=== PATIENT | female | born 1940 | race Caucasian/White ===

== ENCOUNTER → 2017-04-17 | Outpatient (CLI) | payer MEDICARE, OTHER | LOC: GMAL 14:19 | PROVIDERS: ATTEND Family Medicine | DX: D51.3 Other dietary vitamin B12 deficiency anemia (principal); R53.83 Other fatigue; E55.9 Vitamin D deficiency, unspecified; I10 Essential (primary) hypertension; E78.4 Other hyperlipidemia ==

== ENCOUNTER → 2017-06-28 | Outpatient (CLI) | payer MEDICARE, OTHER | END | disposition home or self-care (01) | LOC: GMA 14:04 | PROVIDERS: ATTEND Physician Assistant | DX: N39.0 Urinary tract infection, site not specified (principal) ==

== ENCOUNTER → 2017-08-01 | Outpatient (CLI) | payer MEDICARE, OTHER | LOC: GMAL 14:29 | PROVIDERS: ATTEND Family Medicine | DX: E55.9 Vitamin D deficiency, unspecified (principal) ==

== ENCOUNTER → 2017-08-09 | Outpatient (CLI) | payer MEDICARE, OTHER ==
--- NOTE | 2017-08-10 16:57 | MAM ---
EXAM DESCRIPTION: 3D Screening BILATERAL : Digital Mammography. CLINICAL HISTORY: 77 years Female SCREENING . No complaints. "Fibrocystic disease". Sister with breast cancer. Postmenopausal. Has taken HRT 5 or more years ago. Prior benign left biopsy. COMPARISON: 2-D digital screening bilateral studies 07/26/2016 and 06/20/2015 Report from prior examination also reviewed. TECHNIQUE: Bilateral CC and MLO projection full-field images, 3-D tomosynthesis digital mammographic technique. Also bilateral synthesized CC/ MLO full-field images. CAD not utilized. FINDINGS: The breast parenchymal density pattern is: Extremely dense breast tissue, which lowers the sensitivity of mammography. No skin thickening or nipple retraction bilateral solitary microcalcifications. Bilateral vascular calcifications. No focal, stellate mass or density, focal asymmetry , and no suspicious microcalcifications bilaterally. Stable mammograms compared to prior studies, taking into account differences in mammographic technique IMPRESSION: BI-RADS CATEGORY: 2 - BENIGN FINDINGS. FOLLOW UP: Routine digital bilateral screening, one year interval from August 2017. Written communication explaining the IMPRESSION and follow-up, will be mailed to the patient and referring health care provider. According to the [employer], yearly mammograms are recommended starting at age 40 and continuing as long as a woman is in good health. Any breast change noted on a breast self-exam should be reported promptly to the patient's healthcare provider. Breast MRI is recommended for women with an approximately 20-25% or greater lifetime risk of breast cancer, including women with a strong family history of breast or ovarian cancer and women who have been treated for Hodgkin's disease. A negative mammographic report should not delay tissue diagnosis in patients with significant clinical history or physical findings. Extremely dense breast tissue limits the sensitivity of digital mammography. Electronically signed by: Jonas Serra MD 08/10/2017 4:56 PM LAWN TECHNICIAN
== END | disposition home or self-care (01) ==
LOC: MAMMO 12:55
PROVIDERS: ATTEND Family Medicine
DX: Z12.31 Encounter for screening mammogram for malignant neoplasm of breast (principal)
CPT/HCPCS: 77063; G0202

== ENCOUNTER → 2017-12-06 | Outpatient (CLI) | payer MEDICARE ==
--- NOTE | 2017-12-06 19:24 | MRI ---
EXAM DESCRIPTION: Brain w/o Contrast: MRI. CLINICAL HISTORY: CVA COMPARISON: MRI scan of the brain without contrast 09/03/2015. TECHNIQUE: Multiplanar, high-field MRI unit, multiple diffusion sequences, multiple conventional sequences without contrast. FINDINGS: Small foci of bright FLAIR and T2-weighted signal in the periventricular white matter and briones-white matter junctions of the right frontal lobe. Not associated with hemorrhage mass effect or diffusion restriction.. . Question of a small focal lesion in the posterior limb of the left internal capsule. No other lesions in the basal ganglia. No hemorrhage, no cerebral edema, no mass-effect. Normal signal in the brainstem and cerebellar hemispheres. No hemorrhage, no cerebral edema, no mass-effect. Concordance of the diffusion and non-diffusion sequences with no diffusion restriction. Cortical sulci, ventricles, and other CSF spaces, and the subdural spaces are normally configured for patients age. No effacement or displacement. No midline shift. No extra-axial hemorrhage. Normal flow signal void in the major vessels of the [place], and the venous sinuses. IACs are symmetric bilaterally. Normal signal in the bilateral mastoid air cells. No mass effect in the bilateral cerebellopontine angles. Pituitary gland occupies most of the sella. Base of the cerebellar tonsils is above the foramen magnum. Normal signal in the included paranasal sinuses. Dental hardware in the left maxilla creating artifact over the left anterior facial structures. The bony calvarium is intact. IMPRESSION: 1. 2 foci of abnormal signal in the right frontal lobe periventricular white matter and subcortical white matter are stable since the prior study in 2014. No diffusion restriction mass effect or cerebral edema or hemorrhage. Most likely related to previous ischemic process or small vessel disease. 2. The remainder of the brain shows no remarkable findings with no diffusion restriction on noncontrast MRI diffusion study. Stable since the prior study in 2014. Electronically signed by: Jonas Serra MD 12/06/2017 7:23 PM DEBURRING MACHINE OPERATOR
== END ==
LOC: MRI 13:56
PROVIDERS: ATTEND Family Medicine
DX: I63.50 Cerebral infarction due to unspecified occlusion or stenosis of unspecified cerebral artery (principal)

== ENCOUNTER → 2017-12-27 | Outpatient (CLI) | payer MEDICARE ==
--- NOTE | 2017-12-30 08:17 | MRI ---
EXAM DESCRIPTION: Knee,Right CLINICAL HISTORY: KNEE PAIN COMPARISON: None Available. TECHNIQUE: MRI of the right knee is performed according to our usual protocol with multiplanar multi sequence imaging. FINDINGS: Small right knee joint effusion. There is an 8 mm loose body in the anterior central aspect of the knee joint related to arthritic changes. Evaluation of articular surfaces of the knee joint shows severe patellofemoral arthritis with extensive grade 4 chondrosis. The trochlea is similarly affected and is very flat in shape. 10 mm of lateral subluxation of the patella is present. TT TG interval at 16 mm. These findings are consistent with lateral tracking of the patella. Extensive grade 3 chondrosis in the medial compartment of the knee joint. Reactive edema and subchondral cystic changes on both sides of the proximal tibiofibular joint consistent with degenerative changes and location as well. Cruciate and collateral ligaments intact. Extensive degenerative maceration of the medial meniscus posterior horn at the posteromedial corner but without full-thickness tear. Lateral meniscus intact. IMPRESSION: 1. Advanced arthritic changes especially patellofemoral 2. Loose body in the anterior aspect of the joint related to the patellofemoral arthritis almost certainly 3. Degenerative maceration medial meniscus Electronically signed by: Cipriano Garza MD 12/30/2017 8:15 AM CDT
== END ==
LOC: MRI 13:00
PROVIDERS: ATTEND Family Medicine
DX: M13.861 Other specified arthritis, right knee (principal); M25.561 Pain in right knee

== ENCOUNTER → 2018-01-11 | Outpatient (CLI) | payer MEDICARE | LOC: GMAL 11:12 | PROVIDERS: ATTEND Family Medicine | DX: R30.0 Dysuria (principal) ==

== ENCOUNTER → 2018-01-14 | Outpatient (CLI) | payer MEDICARE | LOC: LAB.O 12:47 | PROVIDERS: ATTEND Orthopaedic Surgery | DX: Z01.818 Encounter for other preprocedural examination (principal) ==

== ENCOUNTER → 2018-02-12 | Outpatient (CLI) | payer MEDICARE | LOC: LAB.O 11:14 | PROVIDERS: ATTEND Internal Medicine Hematology & Oncology | DX: D66 Hereditary factor VIII deficiency (principal) ==

== ENCOUNTER → 2018-02-28 | Outpatient (CLI) | payer MEDICARE | LOC: LAB.O 12:49 | PROVIDERS: ATTEND Family Medicine | DX: D68.0 Von Willebrand disease (principal) ==

== ENCOUNTER → 2018-03-15 | Outpatient (CLI) | payer MEDICARE ==
--- NOTE | 2018-03-15 11:27 | CT ---
EXAM DESCRIPTION: Abdoment/Pelvis w/o Contrast CLINICAL HISTORY: 77 years, Female, ABDOMINAL PAIN COMPARISON: None. TECHNIQUE: CT of the abdomen and pelvis is performed according to our non contrast protocol. Oral contrast was administered. FINDINGS: The lung bases are clear. Dense glandular breast tissue seen bilaterally. Correlate with mammographic findings. Heart size is normal. No pericardial effusion. Low density lesions in the inferior right lobe of the liver are consistent with cysts, all three of similar size approximately 1.5 cm. 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 No inflammation around the pancreas. Liver, spleen, and pancreas are otherwise unremarkable. Cyst in the upper lateral right kidney measures 3.4 cm with density of 10 Hounsfield units. The right kidney is otherwise unremarkable. The left kidney is unremarkable. No renal calculi or hydronephrosis. Normal adrenal glands. No stones in the gallbladder. Small bowel loops appear normal in caliber with normal wall thickness. There is no lymphadenopathy, inflammation, or free fluid observed. In the pelvis, the appendix is not seen. No inflammation around the cecum or terminal ileum or sigmoid colon. There is extensive sigmoid diverticulosis. No stones in the distal ureters or bladder. Rectal wall thickness is normal for degree of distention. No free fluid or mass in the pelvis. Uterus and ovaries are not seen, evidently surgically absent. No inguinal or lower pelvic adenopathy. Facet degenerative changes are prominent in the lower L-spine. Coronal and sagittal reformatted images confirm the findings. IMPRESSION: No acute upper abdominal process. No acute pelvic process. This exam was performed according to our departmental dose-optimization program, which includes automated exposure control, adjustment of the mA and/or kV according to patient size and/or use of iterative reconstruction technique. Total DLP equals 675.76 mGycm. Electronically signed by: Iain Gaviria MD 03/15/2018 11:25 AM CDT
== END ==
LOC: CT 08:39
PROVIDERS: ATTEND Family Medicine
DX: R10.84 Generalized abdominal pain (principal)

== ENCOUNTER 2018-03-26 05:29 | Inpatient (IN) | payer MEDICARE ==
--- NOTE | 2018-03-25 10:04 | HP ---
CHIEF COMPLAINT: Knee pain. HISTORY OF PRESENT ILLNESS: Ms. Aguirre is a 77-year-old female with a history of pain in the right knee. Her knee pain has been present for years and getting worse. She has had no injury associated with this, no neurologic symptoms and denies radiation of pain. She denies any mechanical symptoms. She has had injections and at this point has requested operative intervention. After discussing the risks, benefits and alternatives to that, the patient has given informed consent for total knee arthroplasty. PAST SURGICAL HISTORY: 1. Appendectomy. 2. Tubal ligation. 3. Discectomy. 4. Hysterectomy. 5. Lumpectomy. 6. Lipoma removal. MEDICATIONS: 1. Allopurinol. 2. Aspirin. 3. Docusate. 4. Famotidine. 5. Hydrochlorothiazide. 6. Lisinopril. 7. Benadryl. 8. Topiramate. 9. Simvastatin. 10. Potassium. 11. Hydrocodone. ALLERGIES: KEFLEX, FLEXERIL, CELEBREX, NAMENDA, AMOXIL, MICARDIS, BENICAR, DOXEPIN, NORVASC. CODE STATUS: Full code. IMMUNIZATIONS: Up to date. FAMILY HISTORY: None pertinent to today's complaint. SOCIAL HISTORY: The patient does not drink, smoke or use any illicit drugs. REVIEW OF SYSTEMS: Negative except as indicated in the History of Present Illness. PHYSICAL EXAMINATION: VITAL SIGNS: Blood pressure 133/80. Pulse 68. Height 5'. Weight 155 pounds. MENTAL STATUS: The patient is awake, alert, and is able to give a good history and participate in the physical. The patient is oriented to person, place and time. SKIN: Normal tone and turgor. HEENT: Normocephalic, atraumatic. Pupils equal, round and reactive. Mucosal membranes are moist. NECK: Normal range of motion. No thyromegaly, no lymphadenopathy. CHEST: Normal respiratory excursion. CARDIAC: Regular rate and rhythm. No murmurs, rubs or gallops. MUSCULOSKELETAL: Bilateral upper extremities show full active range of motion without pain. She has intact sensation. They are warm and well perfused. There is no deformity or crepitus. Strength is 5/5. The left lower extremity shows no significant pain with range of motion of the hip. Sensation is intact. The extremity is warm and well perfused. There is no deformity. She has pain with range of motion of the knee and crepitus, but no varus/valgus or anterior/posterior laxity. The right lower extremity shows no pain with range of motion of the hip. She has pain and crepitus with range of motion of the knee. She has warm and well perfused extremity. Sensation is intact. There is no varus/valgus or anterior/posterior laxity. She is very tender to palpation diffusely about the knee and most prominent along the medial aspect and she has pain with patella mobilization as well as pain along the lateral joint-line. ASSESSMENT: 1. Knee osteoarthritis. PLAN: The plan at this point is for total knee arthroplasty. We have discussed the risks, benefits, and alternatives to that and the patient has given informed consent. #[id number] [facility]
[2018-03-26] MEDS ORDERED: LACTATED RINGERS 1,000 ML ONE ×2 (05:56→09:44)
[2018-03-26] MEDS ORDERED: SODIUM CHL 0.9% 100ML MINI-BAG 100 ML IVPB ONE (05:56)
[2018-03-26] MEDS ORDERED: ceFAZolin SODIUM 1 GM VIAL ONE ×2 (05:57→10:21)
[2018-03-26] MEDS ORDERED: VANCOMYCIN HCL INJ 1,000 MG VIAL IVPB ONE ×3 (05:57→20:27)
[2018-03-26] MEDS ORDERED: SODIUM CHLORIDE 0.9% 250ML 250 ML ONE ×2 (05:58→20:27)
[2018-03-26] MEDS ORDERED: SODIUM CHLORIDE 0.9% 500ML 500 ML ONE ×2 (05:58→13:57)
[2018-03-26] MEDS ORDERED: TRANEXAMIC ACID 1,000 MG/10 ML VIAL ONE ×2 (06:01→06:02)
[2018-03-26] MEDS ORDERED: SODIUM CHLORIDE 0.9% 100ML 100 ML IVPB ONE (06:02)
[2018-03-26] MEDS ORDERED: PROMETHAZINE HCL INJ 12.5 MG in SODIUM CHLORIDE 0.9% 50ML 50 ML IVPB PRN (07:17)
[2018-03-26] MEDS ORDERED: TRANEXAMIC ACID INJ 1,000 MG in SODIUM CHLORIDE 0.9% 100ML 100 ML IVPB ONE (07:17)
[2018-03-26] MEDS ORDERED: ZOLPIDEM TARTRATE 5 MG TAB PO PRN (07:17)
[2018-03-26] MEDS ORDERED: MORPHINE SULFATE INJ 10 MG/ML VIAL IM PRN (07:17)
[2018-03-26] MEDS ORDERED: CYCLOBENZAPRINE HCL 10 MG TAB PO PRN (07:17)
[2018-03-26] MEDS ORDERED: NALOXONE HCL INJ 0.4 MG/ML VIAL IV PRN (07:17)
[2018-03-26] MEDS ORDERED: DEX 5% W/NACL 0.45% 1000ML 1,000 ML IVS PRN (07:17)
[2018-03-26] MEDS ORDERED: BISACODYL SUPPOSITORY 10 MG PR PRN (07:17)
[2018-03-26] MEDS ORDERED: TEMAZEPAM 15 MG CAP PO PRN (07:17)
[2018-03-26] MEDS ORDERED: ALUMINUM & MAGNESIUM HYDROXIDE 30 ML UD PO PRN (07:17)
[2018-03-26] MEDS ORDERED: MORPHINE SULFATE INJ 10 MG/ML VIAL IV PRN (07:17)
[2018-03-26] MEDS ORDERED: traMADol HCL 50 MG TAB PO PRN (07:17)
[2018-03-26] MEDS ORDERED: BENZOCAINE-MENTH LOZ (CEPACOL) 1 EA LOZ MT PRN (07:17)
[2018-03-26] MEDS ORDERED: ACETAMINOPHEN 500 MG TAB PO PRN (07:17)
[2018-03-26] MEDS ORDERED: MAGNESIUM HYDROXIDE 30 ML UD PO PRN (07:17)
[2018-03-26] MEDS ORDERED: PROMETHAZINE HCL INJ 25 MG in SODIUM CHLORIDE 0.9% 50ML 50 ML IVPB PRN (07:17)
[2018-03-26] MEDS ORDERED: MORPHINE PCA 1 MG/ML 100 ML BAG IVPB SCH (07:30)
[2018-03-26] MEDS ORDERED: MORPHINE SULF *EPIDURAL* 1 MG/ML VIAL ONE (09:43)
[2018-03-26] MEDS ORDERED: fentaNYL CITRATE INJ 50 MCG/ML AMP ONE (09:43)
[2018-03-26] MEDS ORDERED: MIDAZOLAM INJ 5 MG/5 ML VIAL ONE (09:44)
[2018-03-26] MEDS ORDERED: METOCLOPRAMIDE HCL INJ 10 MG/2 ML VIAL IV ONE (10:00)
[2018-03-26] MEDS ORDERED: ONDANSETRON INJ 4 MG/2 ML VIAL IV ONE (10:00)
[2018-03-26] MEDS ORDERED: DEXAMETHASONE INJ 10 MG/ML VIAL IV ONE (10:00)
[2018-03-26] MEDS ORDERED: PROPOFOL 200 MG/20 ML VIAL IV ONE (10:00)
[2018-03-26] MEDS ORDERED: BUPIVACAINE 0.25% W/EPI 50 ML VIAL INJ ONE (10:21)
[2018-03-26] MEDS: MAGNESIUM OXIDE 400 MG TAB PO SCH (14:42)
[2018-03-26] MEDS: IV SET AND CAP CHANGE INJ INJ SCH (14:42)
[2018-03-26] MEDS: ONDANSETRON INJ 4 MG/2 ML VIAL IV PRN ×2 (16:23→21:00)
[2018-03-26] MEDS: SODIUM CHLORIDE 0.9% (FLUSH) 10 ML SYG IV PRN (16:23)
--- NOTE | 2018-03-26 16:51 | RAD ---
EXAM DESCRIPTION: Knee,Right 2 or More Views CLINICAL HISTORY: 77 years, Female, TKA COMPARISON: None TECHNIQUE: Two views of the right knee FINDINGS: Total right knee arthroplasty is noted with air in the anterior soft tissues consistent with postoperative film. Superior spurring of the patella is seen. Normal alignment of femoral and tibial components of the total prosthesis. Patella is normally situated. No complicating fracture. IMPRESSION: Total right knee arthroplasty. Electronically signed by: Iain Gaviria MD 03/26/2018 4:50 PM CDT
[2018-03-26] MEDS ORDERED: levoFLOXacin 500MG IV 100 ML IVPB ONE (20:25)
[2018-03-26] MEDS: FAMOTIDINE 20 MG TAB PO SCH (20:43)
[2018-03-26] MEDS: POTASSIUM CHLORIDE 10 MEQ TAB PO SCH (20:44)
[2018-03-26] MEDS ORDERED: DOCUSATE CALCIUM 240 MG CAP PO SCH (21:00)
[2018-03-26] MEDS ORDERED: levoFLOXacin 500MG IV 500 MG in PREMIX BAG 1 BAG IVPB ONE (21:00)
--- NOTE | 2018-03-26 21:04 | CONS ---
DATE OF CONSULTATION: 03/26/18 SUPERVISING PHYSICIAN: Butch Rosales M.D. CHIEF COMPLAINT: Right knee pain. HISTORY OF PRESENT ILLNESS: This is a 77 year-old female patient who has had a history of right knee pain. It has been ongoing for several years. She has tried conservative measures but it continues to get worse. There was no injury associated with the knee pain. At this point, she has requested operative intervention per Dr. Kel Hartley, orthopedic surgeon for a right total knee arthroplasty. I am seeing the patient postoperatively. PAST MEDICAL HISTORY: 1. Gout. 2. Gastroesophageal reflux disease. 3. Fibromyalgia. 4. Hyperlipidemia. 5. Hypertension. 6. Coagulopathy problem that may be Von Willebrand but the family was unsure. PAST SURGICAL HISTORY: 1. Appendectomy. 2. Tubal ligation. 3. Discectomy. 4. Hysterectomy. 5. Lumpectomy. 6. Lipoma removal. CURRENT MEDICATIONS: 1. Allopurinol. 2. Aspirin. 3. Docusate sodium. 4. Pepcid. 5. Hydrochlorothiazide. 6. Lisinopril. 7. Medrol. 8. Topiramate. 9. Simvastatin. 10. Potassium. 11. Hydrocodone. ALLERGIES: KEFLEX, FLEXERIL, CELEBREX, NAMENDA, AMOXIL, MICARDIS, BENICAR, DOXEPIN AND NORVASC. FAMILY HISTORY: Noncontributory. SOCIAL HISTORY: She lives in [place]. She has no history of tobacco, ETOH or illicit drug use. REVIEW OF SYSTEMS: Negative except as per History of Present Illness. PHYSICAL EXAMINATION: VITAL SIGNS: She is afebrile, heart rate 77, blood pressure 115/74, respiratory rate 16, O2 sat 92% on 2 liters nasal cannula. GENERAL: This is a 77 year-old female patient who is lying in her hospital bed. She is sleepy but awakens easily. HEENT: Normocephalic and atraumatic. Pupils are equal and reactive. Oropharynx is clear. NECK: Supple without mass. RESPIRATORY: Essentially clear to auscultation bilaterally. CHEST: There is equal rise and fall of the chest with inspiration and expiration. HEART: Regular rate and rhythm. GASTROINTESTINAL: Abdomen is soft, nondistended, non-tender. Bowel sounds are positive. EXTREMITIES: She has an Darvin bandage and Iceman in place to the right knee. Her bilateral pedal pulses are palpable at +2. NEUROLOGIC: She is lethargic but awakens easily. She is oriented times three. IMPRESSION: 1. Right knee osteoarthritis status post right total knee arthroplasty per Dr. Kel Hartley, orthopedic surgeon, postoperative day zero. 2. Gastroesophageal reflux disease. 3. Gout. 4. Hyperlipidemia. 5. Hypertension. 6. Coagulopathy. PLAN: We will continue present supportive care. Dr. Hartley has ordered Cryoprecipitate to be given over the next 3 days. I have restarted her home medications. All orthopedic issues will be per Dr. Kel aHrtley, orthopedic surgeon. Physical therapy will start tomorrow for strengthening and conditioning. We will continue to monitor her closely and follow as needed. Dr. Rosales is the collaborating physician available for consultation. #[id number] [facility]
[2018-03-26] MEDS: VANCOMYCIN HCL INJ 1,000 MG in SODIUM CHLORIDE 0.9% 250ML 250 ML IVPB SCH (21:50)
[2018-03-26] MEDS ORDERED: SODIUM CHLORIDE 0.9% 50ML 50 ML ONE (22:39)
[2018-03-26] MEDS ORDERED: PROMETHAZINE HCL INJ 25 MG/ML VIAL ONE (22:39)
[2018-03-27] MEDS: diphenhydrAMINE HCL 50 MG/ML VIAL IV PRN ×3 (06:19→20:26)
[2018-03-27] MEDS: SODIUM CHLORIDE 0.9% (FLUSH) 10 ML SYG IV PRN (06:20)
[2018-03-27] MEDS ORDERED: NEBIVOLOL 2.5 MG TAB ONE (07:57)
[2018-03-27] MEDS ORDERED: DOCUSATE SODIUM 100 MG CAP ONE (07:58)
--- NOTE | 2018-03-27 08:01 | OP ---
DATE OF PROCEDURE: 03/26/18 PREOPERATIVE DIAGNOSIS: 1. Right knee osteoarthritis. POSTOPERATIVE DIAGNOSIS: 1. Right knee osteoarthritis. PROCEDURE: 1. Right total knee arthroplasty. SURGEON: Kel Hartley MD. TEMPER MILL OPERATOR: Jonas Alberto CST, SA-C. ANESTHESIA: General. COMPLICATIONS: None. FINDINGS: Severe osteoarthritis. INDICATION: Ms. Aguirre has a history of osteoarthritis of the knee which has been refractory to conservative measures. Because of the refractory nature of her arthritis and the failure of conservative measures, she has requested operative intervention. After discussing the risks, benefits and alternatives to that, the patient has given informed consent for total knee arthroplasty. PROCEDURE: The patient was brought to the Operating Room and placed in supine position. General anesthesia was induced and the patient's leg was sterilely prepped and draped. Following prepping and draping, the distal femur was exposed and using an intramedullary guide, the distal femoral cut was made. The appropriate sized cutting block was measured, pinned into place, and the anterior, posterior, and chamfer cuts were made. The ACL was transected and the tibia was subluxed. Both the medial and lateral menisci were removed. An intramedullary guide was used to make the proximal tibial cut. The appropriate sized base plate was placed and a trial polyethylene was placed. The trial femur was placed, the knee was reduced, and the knee was taken through a range of motion. The knee was stable in anterior, posterior, varus and valgus stress. The patella tracked anatomically without evidence of subluxation or dislocation. After trialing, the trial components were removed and the bony surfaces were thoroughly irrigated with saline. Following irrigation, the surfaces were dried and the final components were cemented into place. The excess cement was removed and the remaining cement was allowed to cure. The knee was again taken through a range of motion to confirm stability. The wound was then irrigated with saline and closure was performed using PDS to approximate the arthrotomy followed by closure of the subcutaneous tissues with a combination of running and interrupted Monocryl sutures. Sterile dressing was placed. The patient was awoken from anesthesia and taken to Recovery. POSTOPERATIVE INSTRUCTIONS: The patient will be weight-bearing as tolerated on postoperative day 1. COMPONENTS: [employer] knee, size 4 femur, size 3 tibia, 11 mm insert. #[id number] [facility]
--- NOTE | 2018-03-27 08:13 | PN ---
DATE: 03/26/18 POSTOPERATIVE CHECK SUBJECTIVE: Ms. Aguirre is doing well and she is not having any pain. OBJECTIVE: Afebrile. Vital signs stable. Dressing is clean, dry and intact. ASSESSMENT: Status post total knee arthroplasty. PLAN: The plan at this point is for her to begin weight-bearing as tolerated on postoperative day 1. #[id number] [facility]
--- NOTE | 2018-03-27 08:16 | PN ---
DATE: 03/27/18 SUBJECTIVE: Ms. Aguirre is doing pretty well and pain is well controlled with her COOK HELPER MEAT. OBJECTIVE: Afebrile. Vital signs stable. Dressing is clean, dry and intact. ASSESSMENT: Status post total knee arthroplasty. PLAN: The plan at this point is to begin weight-bearing as tolerated today. We will also begin CPM. [facility][id number] [facility]
[2018-03-27] MEDS ORDERED: DOCUSATE SODIUM 100 MG CAP PO SCH (09:00)
[2018-03-27] MEDS: LISINOPRIL 10 MG TAB PO SCH (09:31)
[2018-03-27] MEDS: MAGNESIUM OXIDE 400 MG TAB PO SCH (09:31)
[2018-03-27] MEDS: hydroCHLOROthiazide 25 MG TAB PO SCH (09:32)
[2018-03-27] MEDS: SIMVASTATIN 20 MG TAB PO SCH (09:32)
[2018-03-27] MEDS: POTASSIUM CHLORIDE 10 MEQ TAB PO SCH ×2 (09:32→18:23)
[2018-03-27] MEDS: TOPIRAMATE 25 MG TAB PO SCH (09:32)
[2018-03-27] MEDS: ALLOPURINOL 300 MG TAB PO SCH (09:32)
[2018-03-27] MEDS: FAMOTIDINE 20 MG TAB PO SCH ×2 (09:32→20:26)
[2018-03-27] MEDS: NEBIVOLOL 2.5 MG TAB PO SCH (09:32)
[2018-03-27] MEDS ORDERED: VANCOMYCIN HCL INJ 1,000 MG VIAL IVPB ONE (10:23)
[2018-03-27] MEDS ORDERED: SODIUM CHLORIDE 0.9% 250ML 250 ML ONE (10:23)
[2018-03-27] MEDS: VANCOMYCIN HCL INJ 1,000 MG in SODIUM CHLORIDE 0.9% 250ML 250 ML IVPB SCH (10:26)
[2018-03-27] MEDS: HYDROcodone 5MG/APAP 325MG 1 EA TAB PO PRN ×3 (10:31→20:25)
[2018-03-27] MEDS: ONDANSETRON INJ 4 MG/2 ML VIAL IV PRN ×2 (10:37→15:15)
[2018-03-27] MEDS: ENOXAPARIN SODIUM 30 MG/0.3 ML SYG SUBCU SCH (12:41)
--- NOTE | 2018-03-27 13:50 | PN ---
SUPERVISING PHYSICIAN: Butch Rosales MD DATE: 03/27/18 SUBJECTIVE: The patient is lying in bed. She continues to have complaints of some nausea although she has had no antinausea medicine since last night. She also has quite a bit of itching. We discussed that we would discontinue her VASCULAR TECHNICIAN and she does pretty well on hydrocodone, but she will need a stool softener. Otherwise, there is no chest pain or shortness of breath. She does feel her pain is being well controlled at this point. She is still on clear liquids. We will advance those as she tolerates. OBJECTIVE: VITAL SIGNS: Afebrile. Heart rate 86. Blood pressure 139/78. Respiratory rate 18. O2 saturation 93% on room air. RESPIRATORY: Essentially clear to auscultation bilaterally. CARDIAC: Regular rate and rhythm. GASTROINTESTINAL: Abdomen is soft, nondistended, nontender. Bowel sounds are positive. EXTREMITIES: No cyanosis, clubbing or edema. Bilateral pedal pulses are palpable at +2. She has an Darvin bandage to her right knee. It is dry and intact. NEUROLOGIC: Awake, alert and oriented times three. LABORATORY: Hemoglobin 12.1, hematocrit 36.7. All other labs and films have been reviewed via the EMR. ASSESSMENT: 1. Osteoarthritis of the right knee status post right total knee arthroplasty per Dr. Kel Hartley, orthopedic surgeon, postoperative day #1. 2. Gastroesophageal reflux disease. 3. Gout. 4. Hyperlipidemia. 5. Hypertension. 6. Coagulopathies. PLAN: We will continue present supportive care. Orthopedic issues will be per Dr. Kel Hartley, orthopedic surgeon. She is getting Benadryl for her itching and we will discontinue her VASCULAR TECHNICIAN pump as soon as she gets stabilized on her [place]. I have added some Colace b.i.d. and we will advance her diet as she tolerates. She will continue with physical therapy for strengthening and conditioning. We will continue to monitor the patient closely and follow as needed. Dr. Rosales is the collaborating physician and available for consultation. [facility][id number] [facility]
[2018-03-27] MEDS ORDERED: SODIUM CHLORIDE 0.9% 100ML 100 ML IVPB ONE (16:46)
[2018-03-27] MEDS: DOCUSATE CALCIUM 240 MG CAP PO SCH (20:26)
[2018-03-28] MEDS: HYDROcodone 5MG/APAP 325MG 1 EA TAB PO PRN ×3 (00:42→10:04)
[2018-03-28] MEDS: ENOXAPARIN SODIUM 30 MG/0.3 ML SYG SUBCU SCH ×2 (02:00→16:23)
[2018-03-28] MEDS: hydroCHLOROthiazide 25 MG TAB PO SCH (09:59)
[2018-03-28] MEDS: TOPIRAMATE 25 MG TAB PO SCH (09:59)
[2018-03-28] MEDS: FAMOTIDINE 20 MG TAB PO SCH ×2 (09:59→16:23)
[2018-03-28] MEDS: SIMVASTATIN 20 MG TAB PO SCH (09:59)
[2018-03-28] MEDS: DOCUSATE CALCIUM 240 MG CAP PO SCH ×2 (10:00→20:35)
[2018-03-28] MEDS: SODIUM CHLORIDE 0.9% (FLUSH) 10 ML SYG IV SCH ×2 (10:00→20:35)
[2018-03-28] MEDS: NEBIVOLOL 2.5 MG TAB PO SCH (10:00)
[2018-03-28] MEDS: ALLOPURINOL 300 MG TAB PO SCH (10:00)
[2018-03-28] MEDS: MAGNESIUM OXIDE 400 MG TAB PO SCH (10:01)
[2018-03-28] MEDS: POTASSIUM CHLORIDE 10 MEQ TAB PO SCH ×2 (10:01→16:24)
[2018-03-28] MEDS: LISINOPRIL 10 MG TAB PO SCH (10:01)
--- NOTE | 2018-03-28 11:48 | PN ---
SUPERVISING PHYSICIAN: Butch Rosales MD DATE: 03/28/18 SUBJECTIVE: The patient is lying in bed. She is asleep. Her right leg is on the CPM machine. Her daughter is at the bedside. The patient has no complaints of itching although she does have some mild nausea, but no vomiting. She denies chest pain, shortness of breath or constipation. I discussed at length with the daughter and the patient her discharge plan for Swing Bed and they agreed with the present plan of care. OBJECTIVE: VITAL SIGNS: Temperature 97.9. Heart rate 92. Blood pressure 149/ 79. Respiratory rate 18. O2 saturation 94% on room air. RESPIRATORY: Essentially clear to auscultation bilaterally. CARDIAC: Regular rate and rhythm. GASTROINTESTINAL: Abdomen is soft, nondistended, nontender. Bowel sounds are positive. EXTREMITIES: Bilateral pedal pulses are palpable at +2. Right knee dressing is dry and intact with no signs or symptoms of complications at the incision site. LABORATORY: There are no labs or films to report at this time. ASSESSMENT: 1. Osteoarthritis of the right knee status post right total knee arthroplasty per Dr. Kel Hartley, orthopedic surgeon, postoperative day #2. 2. Gastroesophageal reflux disease. 3. Gout. 4. Hyperlipidemia. 5. Hypertension. 6. Coagulopathy, most likely Von Willebrand's disease. PLAN: We will continue present supportive care. Orthopedic issues will be per Dr. Kel Hartley, orthopedic surgeon. She will continue with her physical therapy for strengthening and conditioning per physical therapy. She will most likely need Swing Bed admission and should be able to be discharged from Acute Care tomorrow and readmitted to Swing Bed. She does have some coagulopathy problems and there was some question if we need to start Xarelto after discharge. She has 2 more days of cryoprecipitate and she is presently on Lovenox. Her pharmacy general manager may need to be consulted at some point or at least reviewed with Dr. Hartley. Otherwise, we will continue to monitor the patient closely and follow as needed. Dr. Rosales is the collaborating physician and available for consultation. #[id number] ADDENDUM: [id number]--Patient reported to staff that she did not feel "right". She was also much weaker than earlier. Neurologically is intact. She does have a bilateral expiratory wheeze in lung bases. Xopenex breathing treatments ordered. Chest x-ray and lab ordered for a.m. as well as q 4 hour neuro checks. Encouraged good pulmonary hygiene. MTDD
[2018-03-28] MEDS ORDERED: SODIUM CHLORIDE 0.9% 100ML 100 ML IVPB ONE (16:17)
[2018-03-28] MEDS ORDERED: LEVALBUTEROL NEBS 1.25 MG/3 ML VIAL NEB ONE (21:45)
[2018-03-28] MEDS ORDERED: LEVALBUTEROL NEBS 1.25 MG/3 ML VIAL NEB PRN (22:04)
[2018-03-28] MEDS ORDERED: MAGNESIUM SULFATE PREMIX 4GM 4 GM in PREMIX BAG 1 BAG IVPB ONE (23:38)
[2018-03-28] MEDS ORDERED: KCL 20MEQ/WATER FOR INJ 100ML 20 MEQ in PREMIX BAG 1 BAG IVPB ONE (23:41)
[2018-03-28] MEDS ORDERED: POTASSIUM CHLORIDE 20 MEQ TAB PO ONE (23:41)
[2018-03-28] MEDS ORDERED: SODIUM CHLORIDE 0.9% 500ML 500 ML IVS ONE (23:44)
[2018-03-28] MEDS ORDERED: MAGNESIUM SULFATE PREMIX 4GM 50 ML IVPB ONE (23:45)
[2018-03-29] MEDS ORDERED: KCL 20MEQ/WATER FOR INJ 100ML 100 ML IVPB ONE (00:46)
[2018-03-29] MEDS: ENOXAPARIN SODIUM 30 MG/0.3 ML SYG SUBCU SCH ×2 (02:00→14:37)
[2018-03-29] MEDS: HYDROcodone 5MG/APAP 325MG 1 EA TAB PO PRN ×2 (04:51→12:28)
[2018-03-29] MEDS: FAMOTIDINE 20 MG TAB PO SCH ×2 (06:29→17:24)
--- NOTE | 2018-03-29 06:48 | RAD ---
EXAM DESCRIPTION: Single view of the chest CLINICAL HISTORY: congestion COMPARISON: 02/05/2018 FINDINGS: Single frontal view of the chest. The cardiomediastinal silhouette has normal size and contour. Left basilar airspace opacities with possible small left pleural effusion. No pneumothorax. Elevation the right hemidiaphragm. No displaced rib fractures identified. Upper abdominal soft tissues are unremarkable. IMPRESSION: 1. Left basilar airspace opacity concerning for pneumonia with possible small left pleural effusion. Electronically signed by: Sami Dobson 03/29/2018 6:46 AM CDT
[2018-03-29] MEDS: POTASSIUM CHLORIDE 10 MEQ TAB PO SCH ×2 (07:59→17:23)
[2018-03-29] MEDS: LEVALBUTEROL NEBS 1.25 MG/3 ML VIAL NEB SCH ×4 (08:10→20:00)
[2018-03-29] MEDS ORDERED: POTASSIUM CHLORIDE 20 MEQ TAB PO ONE (08:12)
[2018-03-29] MEDS: IV SET AND CAP CHANGE INJ INJ SCH (08:26)
[2018-03-29] MEDS ORDERED: levoFLOXacin 750MG IV 750 MG in PREMIX BAG 1 BAG IVPB ONE (08:30)
[2018-03-29] MEDS: NEBIVOLOL 2.5 MG TAB PO SCH (09:11)
[2018-03-29] MEDS: LISINOPRIL 10 MG TAB PO SCH (09:12)
[2018-03-29] MEDS: TOPIRAMATE 25 MG TAB PO SCH (09:12)
[2018-03-29] MEDS: MAGNESIUM OXIDE 400 MG TAB PO SCH (09:12)
[2018-03-29] MEDS: ALLOPURINOL 300 MG TAB PO SCH (09:12)
[2018-03-29] MEDS: SODIUM CHLORIDE 0.9% (FLUSH) 10 ML SYG IV SCH ×2 (09:12→20:39)
[2018-03-29] MEDS: DOCUSATE CALCIUM 240 MG CAP PO SCH ×2 (09:12→20:39)
[2018-03-29] MEDS: SIMVASTATIN 20 MG TAB PO SCH (09:13)
--- NOTE | 2018-03-29 09:49 | PN ---
DATE: 03/28/18 SUBJECTIVE: Ms. Aguirre looks like she is doing well and her pain is improved. OBJECTIVE: Afebrile. Vital signs stable. Wound is clean. There are no signs or symptoms of infection. ASSESSMENT: Status post total knee arthroplasty. PLAN: The plan at this point is to continue with weight-bearing as tolerated and increase CPM. #[id number] [facility]
--- NOTE | 2018-03-29 09:53 | PN ---
DATE: 03/29/18 SUBJECTIVE: She has improved with regards to pain again. OBJECTIVE: Afebrile. Vital signs stable, however, her labs after had significant changes. She has had decrease in sodium to 129. Potassium decreased to 2.6 although it has improved with replenishment to 3.1. She did have a spike in her white blood cell count. With regard to her knee, the wound is clean. There are no signs or symptoms of infection. There is no swelling, no significant increase in warmth and no erythema. IMAGING: X-ray today, there is a chest x-ray that does show some infiltrates. ASSESSMENT: 1. Status post total knee arthroplasty. 2. Possible pneumonia. 3. Electrolyte imbalance. PLAN: With regards to her knee, we are going to have her doing weight-bearing as tolerated. She will be started on Levaquin for the potential pneumonia. The nurse practitioner is going to consult with Dr. Lora for assistance on normalization of her electrolytes. #[id number] [facility]
[2018-03-29] MEDS: KCL 40MEQ/NS 1,000 ML IVS PRN (10:54)
[2018-03-29] MEDS ORDERED: SODIUM CHLORIDE 0.9% 100ML 100 ML IVPB ONE (17:43)
[2018-03-29] MEDS: ACETAMINOPHEN 325 MG TAB PO PRN (20:25)
[2018-03-29] MEDS ORDERED: MAGNESIUM HYDROXIDE 30 ML UD PO ONE (21:00)
[2018-03-29] MEDS ORDERED: BISACODYL SUPPOSITORY 10 MG PR ONE (21:00)
--- NOTE | 2018-03-29 22:31 | PN ---
DATE: 03/29/18 SUPERVISING PHYSICIAN: Butch Rosales M.D. SUBJECTIVE: The patient last night had a brief run of sinus tachycardia up into the 160s. She had no chest pains reported with this and was given Cardizem as well as correction of underlying electrolyte imbalance with the patient showing a good response. This morning, the patient is lying in bed and just finished her physical therapy with a controlled ventricular rate noted on telemetry, mid 90s to 100s. She again reports no chest pains. No shortness of breath and notes that her pain is fairly well controlled in regards to her knee. She does remain afebrile. Although this morning her x-rays indicated a left sided lung consolidation concerning for pneumonia. Again the patient is encouraged to continue with her incentive spirometry exercises to prevent atelectasis and worsening pneumonia. OBJECTIVE: VITAL SIGNS: She remains afebrile with a T max temperature of 99.5, pulse was 104 this morning with blood pressure 138/79, respirations 16, satting 93% on nasal cannula at rest and 95% on room air. Last night she did have an increase in her heart rate up into the 160s with a maximum noted as being 169 around 2300 with blood pressure showing to be 138/81 with saturations 95%. GENERAL: The patient appears to be in no acute distress. She is resting comfortably. CHEST: Lungs were clear to auscultation with no notable rhonchi but diminished bilaterally. HEART: Regular rate and rhythm showing a rate of 108 on monitor. ABDOMEN: Soft, non-tender. Positive bowel sounds. EXTREMITIES : Right knee has a dressing in place which is clean and dry. No signs of infection. Distally pulses are strong, capillary refill is brisk. NEUROLOGIC: She is alert and oriented times three. LABORATORY: Last night potassium showed to be low at 2.6 with sodium 128 and chloride 98 with glucose 133 and magnesium 1.4. This morning after replacement of both potassium and magnesium as well as on a saline drip, sodium is up to 129 , potassium is up to 3.1, magnesium is up to 2.5. Renal function shows a creatinine of 1.11. White count does show leukocytosis this morning of 17,400 with hemoglobin 11.2, hematocrit 33.1, platelet count 178,000. Differential does show a left shift but no bands. MICROBIOLOGY: MRSA surveillance culture showed a Staphylococcus species but it was negative for Methicillin resistance. RADIOLOGY: Chest x-ray this morning per radiology interpretation of a single view chest showed a left basilar airspace opacity concerning for pneumonia with a possible small left pleural effusion. ASSESSMENT: 1. Osteoarthritis of the right knee status post right total knee arthroplasty per Dr. Kel Hartley, orthopedic surgeon, postoperative day #3. 2. Concerns for developing left sided pneumonia as noted on radiographic studies. 3. Brief episode of sinus tachycardia secondary to stopping of Bystolic preoperatively and exacerbated by electrolyte imbalance to include hypokalemia and hypomagnesemia now with controlled rate after normalization of electrolytes. 4. Gastroesophageal reflux disease. 5. Gout. 6. Hyperlipidemia. 7. Hypertension. 8. Coagulopathy, most likely Von Willebrand's disease. 9. Hyponatremia that is hyperosmolar probably secondary to excessive fluid management in the preoperative and operative period and exacerbated by thiazide diuretic. PLAN: Will continue to monitor the patient closely as there is concern that she has developed a left sided pneumonia. I have initiated antibiotics to include Levaquin at this point and again encouraged good bronchial hygiene. She is on Xopenex as well but will hold off on any CPT at this point in efforts to not exacerbate any additional abnormal rhythms. She will continue on cardiac telemetry. I will go ahead and replace her potassium as well as her sodium with normal saline and 40 of potassium at 150 an hour as well as additional p.o. dose. Plan to repeat labs later today, probably around 5:00 to further assess for electrolyte imbalance. I did have a consultation via phone with Dr. Lora regarding the patient's presentation last night and he felt like most likely it was related to lack of beta blockade as well as electrolyte imbalance, and recommended no additional changes to what we are doing currently and continue with normalizing electrolytes and monitoring closely. Should she have any acute deterioration, he would gladly see her this coming Sunday in his office here at [facility] or if she is discharged to followup in his office as an outpatient. She has finished her cryoprecipitate and remains on Lovenox. Will continue to touch base with Dr. Hartley in regards to further anticoagulation in regards to the patient's history of possible Von Willebrand's disease. Will defer orthopedic management and physical therapy to Dr. Hartley and Physical Therapy. Will anticipate once the patient shows improvement clinically, discharging to Swing Bed for continued outpatient management. In regards to the hyponatremia, again will plan to hold the thiazide diuretic as well as limit oral intake to less than 1800 mL per day. [facility][id number] [facility]
[2018-03-30] MEDS: ENOXAPARIN SODIUM 30 MG/0.3 ML SYG SUBCU SCH ×2 (01:43→15:47)
[2018-03-30] MEDS: KCL 40MEQ/NS 1,000 ML IVS PRN (05:40)
[2018-03-30] MEDS: FAMOTIDINE 20 MG TAB PO SCH ×2 (06:27→17:11)
--- NOTE | 2018-03-30 06:55 | RAD ---
EXAM DESCRIPTION: Single view of the chest CLINICAL HISTORY: LL pneumonia post op COMPARISON: 03/29/2018 FINDINGS: Single frontal view of the chest. The cardiomediastinal silhouette is stable. Slight improved aeration of the left lung base with streaky bibasilar opacities. No pneumothorax. Elevation the right hemidiaphragm. Osseous structures are stable. Upper abdominal soft tissues are unremarkable. IMPRESSION: 1. Streaky bibasilar opacities with improved aeration of the left lung base. Electronically signed by: Sami Dobson 03/30/2018 6:53 AM CDT
[2018-03-30] MEDS: POTASSIUM CHLORIDE 10 MEQ TAB PO SCH ×2 (08:21→17:11)
[2018-03-30] MEDS: LEVALBUTEROL NEBS 1.25 MG/3 ML VIAL NEB SCH ×4 (09:21→20:46)
[2018-03-30] MEDS: DOCUSATE CALCIUM 240 MG CAP PO SCH ×2 (09:23→20:32)
[2018-03-30] MEDS ORDERED: levoFLOXacin 250MG IV 50 ML IVPB ONE (09:27)
[2018-03-30] MEDS: NEBIVOLOL 2.5 MG TAB PO SCH (10:38)
[2018-03-30] MEDS: TOPIRAMATE 25 MG TAB PO SCH (10:39)
[2018-03-30] MEDS: SIMVASTATIN 20 MG TAB PO SCH (10:43)
[2018-03-30] MEDS: ALLOPURINOL 300 MG TAB PO SCH (10:43)
[2018-03-30] MEDS: LISINOPRIL 10 MG TAB PO SCH (10:43)
[2018-03-30] MEDS: MAGNESIUM OXIDE 400 MG TAB PO SCH (10:44)
[2018-03-30] MEDS: SODIUM CHLORIDE 0.9% (FLUSH) 10 ML SYG IV SCH ×2 (10:57→20:32)
[2018-03-30] MEDS: levoFLOXacin 250MG IV 250 MG in PREMIX BAG 1 BAG IVPB SCH (10:57)
[2018-03-30] MEDS: ACETAMINOPHEN 325 MG TAB PO PRN ×3 (13:12→21:34)
[2018-03-30] MEDS: tiZANidine 4 MG TAB PO PRN ×2 (13:37→21:34)
--- NOTE | 2018-03-30 14:49 | PN ---
DATE: 03/30/18 SUBJECTIVE: She is doing well. She is sitting up in her chair with the knee bent to 90 degrees. OBJECTIVE: She has improved somewhat with regards to her sodium, however it still is low. Unfortunately her IV has infiltrated at this time. Otherwise she is afebrile. Vital signs are stable. Wound is clean. There are no signs or symptoms of infection. ASSESSMENT: 1. Status post total knee arthroplasty. PLAN: The plan at this point is for her to continue on to receive sodium replenishment. Will continue on with her physical therapy as tolerated. #[id number] [facility]
--- NOTE | 2018-03-30 15:45 | PN ---
DATE: 03/30/18 SUPERVISING PHYSICIAN: Sami Craig M.D. SUBJECTIVE: The patient has continued to have controlled rate in regards to her heart rate. She did have an Ambien last night and is quite sleepy this morning, but is able to participate with her physical therapy. She notes that she is feeling a little bit better, just tired. I discussed with her and her daughter that we would discontinue the Ambien and any other sleep aides, and try Zanaflex which she is not allergic to along with some [place] to help hopefully resolve the lethargy in the morning. She does remain afebrile and has had a nonproductive cough, and is again encouraged to utilize her incentive spirometry. She has had some diarrhea since starting the Levaquin, however this was also associated with some Milk of Magnesia and stool softeners last night. OBJECTIVE: VITAL SIGNS: Temperature 99, pulse 105, blood pressure 150/80, respirations 20, satting 95% on room air. CHEST: Today, clearer to auscultation. No rhonchi or wheezing. Diminished towards the bases bilaterally. HEART: Regular rate and rhythm but tachycardic at 105. ABDOMEN: Soft, non-tender. Positive bowel sounds. EXTREMITIES: Right knee has a dressing in place that is clean and dry. No signs of infection. Distally pulses are strong and equal with capillary refill brisk. NEUROLOGIC: She is alert and oriented times three. LABORATORY: White count is down to 12,600, hemoglobin is stable at 10.2 and 30.7, platelet count 166,000. Differential does continue to show a left shift that is improving. Chemistries show an improvement, sodium is up to 131, potassium has normalized now to 4.1, BUN 16, creatinine 1.12, calcium 8.4, magnesium 1.9. MICROBIOLOGY: Final MRSA surveillance culture was negative for MRSA. RADIOLOGY: Repeat chest x-ray this morning per radiology interpretation of a single view chest shows streaky bibasilar opacities with improved aeration of the left lung base. ASSESSMENT: 1. Osteoarthritis of the right knee status post total right knee arthroplasty per Dr. Kel Hartley, orthopedic surgeon, postoperative day 4. 2. Questionable left sided pneumonia community acquired versus healthcare acquired with complications postoperatively with radiographic studies showing improvement and the patient responding to Levaquin. 3. Gastroesophageal reflux disease. 4. Gout. 5. Hyperlipidemia. 6. Hypertension. 7. Coagulopathy, most likely Von Willebrand's disease. 8. Persistent hyponatremia, hyposmolar, probably related to excessive fluid preoperatively and intraoperatively as well as exacerbation by thiazide diuretic with the patient showing good response to fluid restrictions, normal saline infusion and holding her thiazide diuretic. 9. Diarrhea associated with recent administration of stool softeners and Milk of Magnesia possibly complicating sodium levels requiring further monitoring. PLAN: Will continue to monitor the patient's condition. She will remain on Levaquin and normal saline. Will plan to saline lock her later tonight and recheck her sodium levels in the morning. Should she show good improvement with continued antibiotics and bronchial hygiene, considerations for discharging to Swing Bed but more likely discharging on Sunday to give an additional 24 hours to ensure the patient is medically stable prior to going to Swing Bed. She has remained stable in regards to her heart rate once reinitiated on beta blockade as well as correction of her underlying electrolyte imbalance. She is again encouraged to avoid any sedative medications, therefore will discontinued Ambien and Restoril, and change to a muscle relaxant with Zanaflex and [place] as needed. In regards to her anticoagulation, will need to discuss this with Dr. Hartley as she did finish her cryoprecipitate infusions as there is possible concerns for Von Willebrand's disease. Until discharge, will defer orthopedic management and physical therapy to Dr. Hartley and Physical Therapy department. Again, hopefully be able to discharge to Swing Bed Sunday, if not tomorrow, once she is showing stability in regards to her electrolytes. Will also need to probably continue to hold her thiazide diuretic for a period of time. Until then, will continue to monitor and treat appropriately. #[id number] [facility]
[2018-03-31] MEDS: ENOXAPARIN SODIUM 30 MG/0.3 ML SYG SUBCU SCH ×2 (01:59→14:23)
[2018-03-31] MEDS: ACETAMINOPHEN 325 MG TAB PO PRN (05:26)
[2018-03-31] MEDS: tiZANidine 4 MG TAB PO PRN ×2 (05:26→17:53)
[2018-03-31] MEDS: FAMOTIDINE 20 MG TAB PO SCH ×2 (06:25→16:33)
[2018-03-31] MEDS: LEVALBUTEROL NEBS 1.25 MG/3 ML VIAL NEB SCH ×4 (07:20→20:55)
[2018-03-31] MEDS: POTASSIUM CHLORIDE 10 MEQ TAB PO SCH ×2 (07:54→16:33)
[2018-03-31] MEDS: ALLOPURINOL 300 MG TAB PO SCH (09:22)
[2018-03-31] MEDS: LISINOPRIL 10 MG TAB PO SCH (09:22)
[2018-03-31] MEDS: BIFIDOBACTERIUM INFANTIS 4 MG CAP PO SCH (09:22)
[2018-03-31] MEDS: DOCUSATE CALCIUM 240 MG CAP PO SCH ×2 (09:22→21:19)
[2018-03-31] MEDS: NEBIVOLOL 2.5 MG TAB PO SCH (09:22)
[2018-03-31] MEDS: MAGNESIUM OXIDE 400 MG TAB PO SCH (09:22)
[2018-03-31] MEDS: TOPIRAMATE 25 MG TAB PO SCH (09:22)
[2018-03-31] MEDS: HYDROcodone 5MG/APAP 325MG 1 EA TAB PO PRN ×3 (09:47→19:35)
[2018-03-31] MEDS ORDERED: levoFLOXacin 500 MG TAB PO SCH (10:00)
[2018-03-31] MEDS: SODIUM CHLORIDE 0.9% (FLUSH) 10 ML SYG IV SCH ×2 (10:40→21:19)
[2018-03-31] MEDS: SIMVASTATIN 20 MG TAB PO SCH (10:52)
[2018-03-31] MEDS: CETIRIZINE HCL 10 MG TAB PO SCH (10:52)
[2018-03-31] MEDS ORDERED: ONDANSETRON 4 MG TAB ONE (14:04)
[2018-03-31] MEDS: ONDANSETRON 4 MG TAB PO PRN ×2 (14:08→19:34)
[2018-03-31] MEDS: levoFLOXacin 250MG IV 250 MG in PREMIX BAG 1 BAG IVPB SCH (15:49)
--- NOTE | 2018-03-31 15:53 | PN ---
SUPERVISING PHYSICIAN: Marquis Laurent MD DATE: 03/31/18 SUBJECTIVE: The patient is sitting up in the chair with multiple family members at bedside. She has no significant complaints at this point but states she does have continued knee discomfort but it is not currently hurting while she is sitting in the chair. Family states she is having problems with her allergies and states she is eating a little bit but not her full meal. OBJECTIVE: VITAL SIGNS: Blood pressure 130/79, heart rate 97, respiratory rate 18, temperature 98.0, oxygen saturation 98%. GENERAL: Ms. Aguirre is a 77 year-old female who is in no active distress at this time. NEUROLOGIC: The patient is alert and oriented. LUNGS are a little bit diminished in the bases but otherwise clear to auscultation bilaterally. CARDIAC: Regular rate and rhythm, normal S1, S2. ABDOMEN: Soft, positive bowel sounds. Non-tender to palpation. : Deferred. EXTREMITIES: Lower extremities with some right knee edema, no erythema. Dressing is dry and intact. Peripheral pulses are 2+. Capillary refill less than 2 seconds. LABORATORY: White count 11.1 which is an improvement from 12.6. Hemoglobin 9.5 , hematocrit 28.6. Platelet count 183,000. Chemistry shows a sodium of 130, potassium 3.5, chloride 105, C02 of 20, BUN 16, creatinine 0.94, glucose 110, calcium 8.3. ASSESSMENT: 1. Osteoarthritis of the right knee status post total right knee arthroplasty , postoperative day #5. 2. Left lower lobe pneumonia with positive response to Levaquin. 3. Gastroesophageal reflux disease. 4. Gout. 5. Hyperlipidemia. 6. Hypertension. 7. Coagulopathy possibly Von Willebrand's disease. 8. Hyponatremia.. 9. Seasonal allergies. PLAN: The patient continues to have a positive response to the Levaquin, therefore, we will continue this but am changing it to p.o. as the patient no longer has an IV. I have encouraged her to cough, deep breathe and utilize her incentive spirometry. She continues to participate in physical therapy but is going to require Swing Bed and will likely do this tomorrow. She is more alert and oriented than she was prior after discontinuation of Ambien and Restoril. Will recheck her labs tomorrow as well as chest x-ray and if those are stable she can progress to Swing Bed status. [facility][id number] [facility]
[2018-04-01] MEDS: ONDANSETRON 4 MG TAB PO PRN (01:50)
[2018-04-01] MEDS: HYDROcodone 5MG/APAP 325MG 1 EA TAB PO PRN ×3 (01:50→21:20)
[2018-04-01] MEDS: ENOXAPARIN SODIUM 30 MG/0.3 ML SYG SUBCU SCH ×2 (01:51→13:35)
[2018-04-01] MEDS: FAMOTIDINE 20 MG TAB PO SCH ×2 (06:26→16:27)
--- NOTE | 2018-04-01 07:33 | RAD ---
EXAM DESCRIPTION: Chest,1 View CLINICAL HISTORY: 77 years Female, Pneumonia COMPARISON: March 30, 2018 TECHNIQUE: AP portable chest. FINDINGS: Improving appearance of the chest with resolving changes of central vascular congestion and volume overload noted. Elevation of the right hemidiaphragm persists and is likely chronic. The right lung has returned to essentially normal appearance except for crowded markings in the medial lung base. On the left there are still coarse markings and slight fullness in the region of the left hilum which likely represents residual edematous changes. Stranding into the medial left lung base is evident and patchy infiltrate cannot be entirely excluded. IMPRESSION: Improving appearance of the chest with resolving changes of central congestion. Chronically elevated right hemidiaphragm and coarse left perihilar and infrahilar markings suggest residual infiltrate/edema. Electronically signed by: Butch Smith MD 04/01/2018 7:32 AM CDT
[2018-04-01] MEDS: IV SET AND CAP CHANGE INJ INJ SCH (07:35)
[2018-04-01] MEDS: LEVALBUTEROL NEBS 1.25 MG/3 ML VIAL NEB SCH ×4 (07:36→20:16)
[2018-04-01] MEDS: POTASSIUM CHLORIDE 10 MEQ TAB PO SCH ×2 (07:48→17:29)
[2018-04-01] MEDS: TOPIRAMATE 25 MG TAB PO SCH (09:25)
[2018-04-01] MEDS: NEBIVOLOL 2.5 MG TAB PO SCH (09:25)
[2018-04-01] MEDS: BIFIDOBACTERIUM INFANTIS 4 MG CAP PO SCH (09:25)
[2018-04-01] MEDS: CETIRIZINE HCL 10 MG TAB PO SCH (09:25)
[2018-04-01] MEDS: LISINOPRIL 10 MG TAB PO SCH (09:25)
[2018-04-01] MEDS: DOCUSATE CALCIUM 240 MG CAP PO SCH ×3 (09:25→21:32)
[2018-04-01] MEDS: MAGNESIUM OXIDE 400 MG TAB PO SCH (09:25)
[2018-04-01] MEDS: ALLOPURINOL 300 MG TAB PO SCH (09:26)
[2018-04-01] MEDS: SODIUM CHLORIDE 0.9% (FLUSH) 10 ML SYG IV SCH (09:26)
--- NOTE | 2018-04-01 09:56 | PN ---
SUPERVISING PHYSICIAN: Marquis Laurent MD DATE: 04/01/18 SUBJECTIVE: The patient states she did not sleep well last night, not due to pain, just inability to really sleep too much. Her daughter states she thinks that having the campus monitor on kept bothering her. The nurses do not report any overnight events. OBJECTIVE: VITAL SIGNS: Blood pressure 159/81. Heart rate 92. Respiratory rate 18. Temperature 98.0. O2 saturation 96%. GENERAL: Ms. Aguirre is a 77-year-old female in no active distress currently. NEUROLOGIC: Alert and oriented. LUNGS: Clear to auscultation bilaterally. CARDIOVASCULAR: Regular rate and rhythm. Normal S1, S2. ABDOMEN: Obese, soft. Positive bowel sounds. No tenderness to palpation. GENITOURINARY: Deferred. EXTREMITIES: Lower extremities with right knee dressing was removed and the incision is well approximated, minimal ecchymosis around the incision. There is no erythema or active drainage. Peripheral pulses 2+. LABORATORY: White count is elevated to 14.0 from 11.1. Hemoglobin 10.2, hematocrit 29.8, platelet count 222. Chemistry shows sodium 129, potassium 3.6 , chloride 102, CO2 20, BUN 14, creatinine 0.93, glucose 86, calcium 8.5. Chest x-ray shows interval improving appearance of central congestion and residual left perihilar infiltrate. ASSESSMENT: 1. Osteoarthritis of the right knee status post right total knee arthroplasty, postoperative day #6. 2. Left lower lobe pneumonia. 3. Gastroesophageal reflux disease. 4. Gout. 5. Hyperlipidemia. 6. Hypertension. 8. Hyponatremia. 9. Seasonal allergies. PLAN: At this point, I am going to place the patient back on IV fluids due to hyponatremia. In addition, I will place the patient back on IV Levaquin. I am going to check a urinalysis as well to ensure there is no urinary tract infection. She continues to participate in physical therapy and utilize incentive spirometry. We will not transfer to Swing Bed until there is improvement in white count and sodium. [facility][id number] [facility]
[2018-04-01] MEDS ORDERED: levoFLOXacin 500MG IV 100 ML IVPB ONE (10:03)
[2018-04-01] MEDS: levoFLOXacin 500MG IV 500 MG in PREMIX BAG 1 BAG IVPB SCH (10:30)
[2018-04-01] MEDS: KCL 20 MEQ/NS 1,000 ML IVS PRN ×2 (13:35→23:56)
[2018-04-01] MEDS ORDERED: SIMVASTATIN 20 MG TAB PO SCH (21:00)
[2018-04-01] MEDS: diphenhydrAMINE HCL 50 MG/ML VIAL IV PRN (21:23)
[2018-04-02] MEDS: SODIUM CHLORIDE 0.9% (FLUSH) 10 ML SYG IV SCH ×2 (00:21→09:35)
[2018-04-02] MEDS: HYDROcodone 5MG/APAP 325MG 1 EA TAB PO PRN ×2 (01:27→06:29)
[2018-04-02] MEDS: ENOXAPARIN SODIUM 30 MG/0.3 ML SYG SUBCU SCH (02:00)
[2018-04-02 06:15] VITALS: BP 147/83; TEMP 98.3
[2018-04-02] MEDS: FAMOTIDINE 20 MG TAB PO SCH (06:28)
[2018-04-02] MEDS: tiZANidine 4 MG TAB PO PRN (06:46)
[2018-04-02] MEDS: POTASSIUM CHLORIDE 10 MEQ TAB PO SCH (07:50)
[2018-04-02] MEDS ORDERED: levoFLOXacin 500MG IV 100 ML IVPB ONE (08:28)
[2018-04-02] MEDS: LEVALBUTEROL NEBS 1.25 MG/3 ML VIAL NEB SCH (08:32)
--- NOTE | 2018-04-02 08:35 | PN ---
DATE: 04/01/18 SUBJECTIVE: Ms. Aguirre has improved somewhat. She continues to have some difficulty with getting around only because of feelings of general weakness. OBJECTIVE: Afebrile. Vital signs stable. Wound is clean. There are no signs or symptoms of infection. LABORATORY: Her potassium is within normal range, however, her sodium continues to be about 129. ASSESSMENT: Status post total knee arthroplasty. PLAN: At this point, she continues to receive electrolyte replenishment. She will also continue with her weight-bearing as tolerated status. #[id number] [facility]
[2018-04-02] MEDS: NEBIVOLOL 2.5 MG TAB PO SCH (08:36)
[2018-04-02] MEDS: TOPIRAMATE 25 MG TAB PO SCH (08:36)
[2018-04-02] MEDS: MAGNESIUM OXIDE 400 MG TAB PO SCH (08:36)
[2018-04-02] MEDS: ALLOPURINOL 300 MG TAB PO SCH (08:36)
[2018-04-02] MEDS: BIFIDOBACTERIUM INFANTIS 4 MG CAP PO SCH (08:36)
[2018-04-02] MEDS: CETIRIZINE HCL 10 MG TAB PO SCH (08:36)
[2018-04-02] MEDS: LISINOPRIL 10 MG TAB PO SCH (08:37)
[2018-04-02] MEDS: levoFLOXacin 500MG IV 500 MG in PREMIX BAG 1 BAG IVPB SCH (09:11)
[2018-04-02] MEDS ORDERED: HYDROcodone 5MG/APAP 325MG 1 EA TAB PO ONE (09:16)
[2018-04-02 11:08] VITALS: O2SAT 98
[2018-04-02] MEDS ORDERED: DOCUSATE CALCIUM 240 MG CAP PO SCH (21:00)
--- NOTE | 2018-04-02 21:14 | DS ---
SUPERVISING PHYSICIAN: Marquis Laurent M.D. ADMISSION DIAGNOSIS: 1. Right knee osteoarthritis status post right total knee arthroplasty. 2. Gastroesophageal reflux disease. 3. Gout. 4. Hyperlipidemia. 5. Hypertension. 6. Coagulopathy. DISCHARGE DIAGNOSIS: 1. Osteoarthritis of the right knee status post right total knee arthroplasty , postoperative day #7. 2. Left lower lobe pneumonia. 3. Gastroesophageal reflux disease. 4. Electrolyte imbalance to include hyponatremia with hypokalemia and hypomagnesemia resolved with IV fluids. 5. Gout. 6. Hyperlipidemia. 7. Hypertension. 8. Seasonal allergies. REASON FOR HOSPITALIZATION: Ms. Aguirre is a 77 year-old female patient with a history of right knee pain. The pain had been persisting over several years. She had tried multiple efforts at conservative measures and treatment, but continued to get worse. Due to the decreased ability to function on activities of daily living, the patient requested that operative intervention be performed by Dr. Kel Hartley for a right total knee arthroplasty. The patient was seen and followed immediately postoperative. She had no complications preoperatively and postoperatively developed hyponatremia as well as left lower lobe pneumonia. She was able to participate with her physical therapy with some delay due to the underlying pneumonia. She was initiated on antibiotic therapy and showed improvement, and was able to continue with her physical therapy and was transitioned to p.o. medication. It was felt that the patient had improved clinically well enough to continue with physical therapy as an outpatient. The patient had significant deconditioning and give the fact that she had an extensive stay with underlying pneumonia, the patient now is going to be admitted to Swing Bed for continued rehabilitation efforts. LABORATORY STUDIES: Initial CBC of 03/25/18 showed she had a hemoglobin 12.9, hematocrit 38.8 with a platelet count 220,000. Postoperatively H&H was 12.1 and 36.7. She developed leukocytosis that initially was at 17,400 with a left shift. After initiation of antibiotic, this improved on IV antibiotics and then she was transitioned to p.o. antibiotics, however after transitioning back to p.o. antibiotics she again had an increase in her leukocytosis up to 14,000. She was initiated back on Levaquin IV and at discharge white count was down to 11,000 with hemoglobin 9.6, hematocrit 28.8, platelet count 235 with a differential showing a continued left shift. Chemistries on initial admission, sodium 136, potassium 3.8, creatinine 25 and 1.54. Her sodium did decrease postoperatively to 128 and went down as low as 127, and after treatment, responded well to treatment and at discharge to Swing Bed was showing a sodium of 136. Potassium chris down to a low of 2.6, after replacement and further therapy and at discharge it normalized to 4.0. BUN and creatinine had normalized and at discharge BUN was 14, creatinine 0.97. Calcium 8.6. Magnesium was showing to be low initially at 1.4, postoperatively after replacement had normalized and at discharge was 1.9. Urinalysis showed to be within normal limits on admission, on the day before discharge she was showing a pH of 8 with 15 of ketones, trace of intact blood, otherwise within normal limits. MICROBIOLOGY: MRSA surveillance culture was negative. RADIOLOGY: Other than postoperative x-rays, she had a chest x-ray initially on 03/29/18 that showed a left basilar airspace opacity concerning for pneumonia. Additional x-rays were followed-up with and on 04/01/18 x-rays showed per radiology interpretation of a single view chest showed improving appearance of the chest with resolving changes of central congestion, chronically elevated right hemidiaphragm and coarse left perihilar and infrahilar markings suggestive of residual infiltrate or edema. HOSPITAL COURSE: Ms. Aguirre was admitted postoperatively after she had an elective total knee arthroplasty as noted on 03/26/18. She had a history of coagulopathy and was given 3 days of cryoprecipitate and had no complications from any bleeding. She did show a low sodium as well as there was concerns for developing left lower lobe pneumonia. Treatment was initiated with saline infusions and Levaquin for antibiotic therapy. It was felt that postoperatively she was a little fluid overloaded as well as complicating her hyponatremia was her thiazide diuretic. She was placed on fluid restrictions and thiazide diuretics were held. The patient showed good response, although slowly as well as x-rays showed improving in regards to the left lower lobe pneumonia. The patient initially showed improvement, however shortly after treatment for the hyponatremia and the pneumonia, her leukocytosis once again increased after the patient was transitioned from IV Levaquin to p.o. Levaquin. She was then again initiated on antibiotic therapy with IV Levaquin as well as normal saline. On the morning of discharge to Swing Bed, the patient was showing a normal sodium as well as her white count had gone down to 11,000. The patient was able to participate with physical therapy, had fairly well good control of her pain but continuing in the need of physical therapy due to significant deconditioning complicated by the underlying pneumonia, therefore the patient is felt to be stable enough to be discharged to continue with physical therapy through Swing Bed management. PLAN: Ms. Aguirre was discharged on 04/02/18 from Acute Care and was to be admitted to Swing Bed on the same date for continued rehabilitation efforts. She was to continue with her home medications except for thiazide diuretic was going to be held. She was continued on antibiotics to include p.o. Levaquin. She was continued on anticoagulant therapy with Xarelto. Diet at discharge was regular diet as tolerated. Activity is as per Physical Therapy. Condition at discharge was stable and improved. [facility][id number] [facility]
== END 2018-04-02 09:35 | disposition swing bed (61) | DRG 469 ==
LOC: AMB 05:29 → MS 14:15
PROVIDERS: ADMIT Orthopaedic Surgery; ATTEND Nurse Practitioner Family
PROC: 0SRC0J9 Replacement of Right Knee Joint with Synthetic Substitute, Cemented, Open Approach (ICD-10-PCS; principal; 2018-03-26 09:50)
DX: M17.11 Unilateral primary osteoarthritis, right knee (principal); J18.9 Pneumonia, unspecified organism; D68.9 Coagulation defect, unspecified; E87.1 Hypo-osmolality and hyponatremia; I10 Essential (primary) hypertension; K21.9 Gastro-esophageal reflux disease without esophagitis; M10.9 Gout, unspecified; E78.5 Hyperlipidemia, unspecified; E83.42 Hypomagnesemia; E87.6 Hypokalemia; M79.7 Fibromyalgia; Z79.82 Long term (current) use of aspirin; Z88.1 Allergy status to other antibiotic agents; Z88.8 Allergy status to other drugs, medicaments and biological substances

== ENCOUNTER 2018-04-02 09:45 | Inpatient (IN) | payer MEDICARE ==
[2018-04-02] MEDS ORDERED: ACETAMINOPHEN 500 MG TAB PO PRN (10:08)
[2018-04-02] MEDS ORDERED: SODIUM PHOS/BIPHOS ENEMA ADULT 133 ML BTTL PR PRN (10:08)
[2018-04-02] MEDS ORDERED: diphenhydrAMINE HCL 25 MG CAP PO PRN (12:52)
[2018-04-02] MEDS ORDERED: HYDROcodone 5MG/APAP 325MG 1 EA TAB PO PRN (12:52)
--- NOTE | 2018-04-02 12:52 | PCM.CORE ---
Physician DVT/VTE - Prophylaxis Currently: Patient already on anticoagulation therapy - xarelto - Nurse DVT Assessment & Total Each Risk Factor Represents 3 Points: Age over 75 years Each Risk Factor Represents 1 Point: Hx Major Surgery <1month Each Risk Factor is 1 Point: Obesity (BMI >25) DVT Assessment Score: 5 - 5 or more Very High Risk Treatments: Early Ambulation *, Sequential Compression Device
[2018-04-02] MEDS: HYDROcodone 5MG/APAP 325MG 1 EA TAB PO PRN ×3 (13:57→18:27)
[2018-04-02] MEDS: FAMOTIDINE 20 MG TAB PO SCH (17:18)
[2018-04-02] MEDS: POTASSIUM CHLORIDE 10 MEQ TAB PO SCH (17:18)
[2018-04-02] MEDS: tiZANidine 4 MG TAB PO PRN (20:33)
[2018-04-02] MEDS: RIVAROXABAN 10 MG TAB PO SCH (20:34)
--- NOTE | 2018-04-02 21:30 | HP ---
SUPERVISING PHYSICIAN: Marquis Laurent M.D. CHIEF COMPLAINT: HISTORY OF PRESENT ILLNESS: Ms. Aguirre is a 77 year-old female patient with a history of right knee pain. The pain had been persisting over several years. She had tried multiple efforts at conservative measures and treatment, but continued to get worse. Due to the decreased ability to function on activities of daily living, the patient requested that operative intervention be performed by Dr. Kel Hartley for a right total knee arthroplasty. The patient was seen and followed immediately postoperative. She had no complications preoperatively and postoperatively developed hyponatremia as well as left lower lobe pneumonia. She was able to participate with her physical therapy with some delay due to the underlying pneumonia. She was initiated on antibiotic therapy and showed improvement, and was able to continue with her physical therapy and was transitioned to p.o. medication. It was felt that the patient had improved clinically well enough to continue with physical therapy as an outpatient. The patient had significant deconditioning and give the fact that she had an extensive stay with underlying pneumonia, the patient now is going to be admitted to Swing Bed for continued rehabilitation efforts. PAST MEDICAL HISTORY: 1. Gout. 2. Gastroesophageal reflux disease. 3. Fibromyalgia. 4. Hyperlipidemia. 5. Hypertension. 6. Coagulopathy problem that may be Von Willebrand but the family was unsure. PAST SURGICAL HISTORY: 1. Appendectomy. 2. Tubal ligation. 3. Discectomy. 4. Hysterectomy. 5. Lumpectomy. 6. Lipoma removal. CURRENT MEDICATIONS: 1. Allopurinol. 2. Aspirin. 3. Docusate sodium. 4. Pepcid. 5. Hydrochlorothiazide held. 6. Lisinopril. 7. Medrol. 8. Topiramate. 9. Simvastatin. 10. Potassium. 11. Hydrocodone. ALLERGIES: KEFLEX, FLEXERIL, CELEBREX, NAMENDA, AMOXIL, MICARDIS, BENICAR, DOXEPIN AND NORVASC. FAMILY HISTORY: Noncontributory. SOCIAL HISTORY: She lives in [place]. She has no history of tobacco, ETOH or illicit drug use. PHYSICAL EXAMINATION: VITAL SIGNS: Temperature 98.3, pulse 96, blood pressure 147/83, respirations 18, satting 97% on room air. Admission weight 78.7 kg. GENERAL: The patient just finished physical therapy. She has good pain control. She is alert. Appears to be in no acute distress. HEENT: Tympanic membranes are clear bilaterally. Oropharynx is pink and moist without any lesions. NECK: Supple, non-tender with full range of motion. No jugular venous distention. CHEST: Clear to auscultation bilaterally without any rhonchi, wheezing or rales. CARDIOVASCULAR: Regular rate and rhythm without appreciable murmurs, gallops, or rubs. ABDOMEN: Soft, non-tender. Positive bowel sounds. EXTREMITIES: No clubbing, cyanosis or edema. Right knee has a dressing in place which is clean and dry which shows no signs of infection. Pulses distally were strong with capillary refill brisk. NEUROLOGIC: She is alert and oriented times three. LABORATORY: No laboratory. RADIOLOGY: No radiographic studies pending. ASSESSMENT: 1. Osteoarthritis of the right knee status post right total knee arthroplasty , postoperative day #7. 2. Left lower lobe pneumonia. 3. Gastroesophageal reflux disease. 4. Electrolyte imbalance to include hyponatremia with hypokalemia and hypomagnesemia resolved with IV fluids. 5. Gout. 6. Hyperlipidemia. 7. Hypertension. 8. Seasonal allergies. PLAN: Ms. Aguirre is going to be admitted to Swing Bed services for ongoing physical therapy and rehabilitation efforts. Will continue to follow the patient closely and defer rehab efforts and management to Physical Therapy and Dr. Hartley. Will anticipate her length of stay to be at least 3 to possibly 10 days. Will follow her medically as needed and if she shows any changes in regards to her condition, certainly will followup with possible laboratory studies and plan to do a repeat chest x-ray within the next 3 to 5 days if not sooner. She will be continued on her home medications with the exception of holding the thiazide diuretic. She will be on Xarelto for an additional 4 days , 10 mg as per protocol. Will continue with antibiotic therapy with Levaquin 500 mg daily for an additional 5 days. Until the patient has met her physical therapy and rehabilitation goals, will continue to manage and follow her appropriately until discharge. Once discharged, she will need close followup with Dr. Hartley and her primary care provider, Dr. Yee. #[id number] [facility]
[2018-04-03] MEDS: HYDROcodone 5MG/APAP 325MG 1 EA TAB PO PRN ×2 (00:36→04:29)
[2018-04-03] MEDS: tiZANidine 4 MG TAB PO PRN (06:51)
[2018-04-03] MEDS: FAMOTIDINE 20 MG TAB PO SCH ×2 (06:51→17:03)
[2018-04-03] MEDS: POTASSIUM CHLORIDE 10 MEQ TAB PO SCH ×2 (08:27→17:03)
[2018-04-03] MEDS: TOPIRAMATE 25 MG TAB PO SCH (08:27)
[2018-04-03] MEDS: LISINOPRIL 10 MG TAB PO SCH (08:27)
[2018-04-03] MEDS: CETIRIZINE HCL 10 MG TAB PO SCH (08:27)
[2018-04-03] MEDS: ASPIRIN (CHEWABLE) 81 MG TAB PO SCH (08:27)
[2018-04-03] MEDS: DOCUSATE SODIUM 100 MG CAP PO SCH ×2 (08:27→08:29)
[2018-04-03] MEDS: NEBIVOLOL 2.5 MG TAB PO SCH (08:27)
[2018-04-03] MEDS: MAGNESIUM HYDROXIDE 30 ML UD PO PRN (08:28)
[2018-04-03] MEDS: BIFIDOBACTERIUM INFANTIS 4 MG CAP PO SCH (08:28)
[2018-04-03] MEDS: SIMVASTATIN 20 MG TAB PO SCH (08:29)
[2018-04-03] MEDS: levoFLOXacin 500 MG TAB PO SCH (08:34)
[2018-04-03] MEDS: ALLOPURINOL 300 MG TAB PO SCH (08:34)
[2018-04-03] MEDS: HYDROcodone 7.5MG/APAP 325MG 1 EA TAB PO PRN ×2 (11:38→17:04)
--- NOTE | 2018-04-03 15:51 | PN ---
DATE: 04/03/18 SUBJECTIVE: Ms. Aguirre is doing pretty well and has been up and ambulating already today. OBJECTIVE: She is afebrile. Vital signs are stable. Wound is clean. There are no signs or symptoms of infection. Sodium at this point has normalized. ASSESSMENT: Status post total knee arthroplasty. PLAN: Continue on weightbearing as tolerated. She has been transitioned into Swing Bed status. #[id number] [facility]
[2018-04-03] MEDS: RIVAROXABAN 10 MG TAB PO SCH (20:46)
[2018-04-04] MEDS: HYDROcodone 7.5MG/APAP 325MG 1 EA TAB PO PRN ×5 (01:01→23:39)
[2018-04-04] MEDS: tiZANidine 4 MG TAB PO PRN (05:06)
[2018-04-04] MEDS: MAGNESIUM HYDROXIDE 30 ML UD PO PRN (05:06)
[2018-04-04] MEDS: FAMOTIDINE 20 MG TAB PO SCH (06:25)
[2018-04-04] MEDS: TOPIRAMATE 25 MG TAB PO SCH (08:57)
[2018-04-04] MEDS: BIFIDOBACTERIUM INFANTIS 4 MG CAP PO SCH (08:57)
[2018-04-04] MEDS: SIMVASTATIN 20 MG TAB PO SCH (08:57)
[2018-04-04] MEDS: ASPIRIN (CHEWABLE) 81 MG TAB PO SCH (08:58)
[2018-04-04] MEDS: CETIRIZINE HCL 10 MG TAB PO SCH (08:58)
[2018-04-04] MEDS: POTASSIUM CHLORIDE 10 MEQ TAB PO SCH ×2 (08:58→17:08)
[2018-04-04] MEDS: NEBIVOLOL 2.5 MG TAB PO SCH (08:58)
[2018-04-04] MEDS: LISINOPRIL 10 MG TAB PO SCH (08:58)
[2018-04-04] MEDS: DOCUSATE SODIUM 100 MG CAP PO SCH ×2 (08:59)
[2018-04-04] MEDS: levoFLOXacin 500 MG TAB PO SCH (08:59)
[2018-04-04] MEDS: ALLOPURINOL 300 MG TAB PO SCH (08:59)
[2018-04-04] MEDS: PANTOPRAZOLE SODIUM TAB 40 MG PO SCH (17:08)
[2018-04-04] MEDS: RIVAROXABAN 10 MG TAB PO SCH (21:30)
[2018-04-05] MEDS: PANTOPRAZOLE SODIUM TAB 40 MG PO SCH ×2 (07:02→17:34)
[2018-04-05] MEDS: POTASSIUM CHLORIDE 10 MEQ TAB PO SCH ×2 (07:29→17:34)
[2018-04-05] MEDS: HYDROcodone 7.5MG/APAP 325MG 1 EA TAB PO PRN ×4 (07:29→20:22)
[2018-04-05] MEDS: TOPIRAMATE 25 MG TAB PO SCH (08:41)
[2018-04-05] MEDS: CETIRIZINE HCL 10 MG TAB PO SCH (08:41)
[2018-04-05] MEDS: ALLOPURINOL 300 MG TAB PO SCH (08:41)
[2018-04-05] MEDS: LISINOPRIL 10 MG TAB PO SCH (08:41)
[2018-04-05] MEDS: levoFLOXacin 500 MG TAB PO SCH (08:41)
[2018-04-05] MEDS: NEBIVOLOL 2.5 MG TAB PO SCH (08:41)
[2018-04-05] MEDS: ASPIRIN (CHEWABLE) 81 MG TAB PO SCH (08:42)
[2018-04-05] MEDS: SIMVASTATIN 20 MG TAB PO SCH (08:42)
[2018-04-05] MEDS: BIFIDOBACTERIUM INFANTIS 4 MG CAP PO SCH (08:42)
[2018-04-05] MEDS: DOCUSATE SODIUM 100 MG CAP PO SCH ×2 (08:51)
[2018-04-05] MEDS: tiZANidine 4 MG TAB PO PRN ×2 (09:57→17:34)
[2018-04-05] MEDS: RIVAROXABAN 10 MG TAB PO SCH (20:31)
[2018-04-06] MEDS: HYDROcodone 7.5MG/APAP 325MG 1 EA TAB PO PRN ×3 (00:30→13:20)
[2018-04-06] MEDS: PANTOPRAZOLE SODIUM TAB 40 MG PO SCH (06:03)
[2018-04-06] MEDS: BIFIDOBACTERIUM INFANTIS 4 MG CAP PO SCH (10:50)
[2018-04-06] MEDS: ASPIRIN (CHEWABLE) 81 MG TAB PO SCH (10:50)
[2018-04-06] MEDS: DOCUSATE SODIUM 100 MG CAP PO SCH ×2 (10:52)
[2018-04-06] MEDS: NEBIVOLOL 2.5 MG TAB PO SCH (10:52)
[2018-04-06] MEDS: levoFLOXacin 500 MG TAB PO SCH (10:54)
[2018-04-06] MEDS: POTASSIUM CHLORIDE 10 MEQ TAB PO SCH (10:54)
[2018-04-06] MEDS: LISINOPRIL 10 MG TAB PO SCH (10:55)
[2018-04-06] MEDS: TOPIRAMATE 25 MG TAB PO SCH (10:57)
[2018-04-06] MEDS: SIMVASTATIN 20 MG TAB PO SCH (10:58)
[2018-04-06] MEDS: CETIRIZINE HCL 10 MG TAB PO SCH (10:58)
[2018-04-06] MEDS: ALLOPURINOL 300 MG TAB PO SCH (10:58)
[2018-04-06 11:28] VITALS: BP 136/79; TEMP 98.5; O2SAT 96
[2018-04-06] MEDS ORDERED: ONDANSETRON ODT 8 MG TAB SL PRN (12:56)
--- NOTE | 2018-04-06 13:59 | RAD ---
EXAM DESCRIPTION: Chest,2 Views CLINICAL HISTORY: f/u - pneumonia COMPARISON: April 01, 2018 FINDINGS: Focal opacity at the left lower lung could be secondary to an infectious process versus pleural fluid, other etiologies are not excluded. There is eventration of the right hemidiaphragm. There are degenerative changes of the thoracic spine. Cardiac silhouette is within normal limits.There is no acute osseous process visualized. IMPRESSION: Focal opacity at the left lower lung could be secondary to an infectious process versus pleural fluid, other etiologies are not excluded. Electronically signed by: Jhon Aguilar MD 04/06/2018 1:57 PM CDT
--- NOTE | 2018-04-06 15:16 | PN ---
DATE: 04/06/18 SUBJECTIVE: Ms. Aguirre continues to improve. OBJECTIVE: She is afebrile. Vital signs are stable. Wound is clean. There is some very minor serous drainage on the most medial portion of her dressing. There is no erythema or other drainage. ASSESSMENT: 1. Status post total knee arthroplasty. PLAN: I think she is doing well enough that she can be discharged to home at this time. She is going to followup with us in approximately 1 week but she has been instruct to return immediately should any change in her condition. #[id number] [facility]
--- NOTE | 2018-04-08 09:47 | DS ---
SUPERVISING PHYSICIAN: Marquis Laurent MD ADMISSION DIAGNOSIS: 1. Osteoarthritis of the right knee status post right total knee arthroplasty , postoperative day #7. 2. Left lower lobe pneumonia on Levaquin. 3. Gastroesophageal reflux disease. 4. Electrolyte imbalance with persistent hyponatremia on acute care along with hypokalemia and hypomagnesemia resolving and returning to baseline status prior to admission after IV fluids. 5. Gout, stable 6. Hyperlipidemia. 7. Hypertension, stable. 8. Seasonal allergies. DISCHARGE DIAGNOSIS: 1. Osteoarthritis of the right knee status post right total knee arthroplasty , postoperative day #11. 2. Left lower lobe pneumonia improving, community acquired, on Levaquin. 3. Gastroesophageal reflux disease. 4. Chronic hyponatremia secondary to Dyazide diuretic. . 5. Gout. 6. Hyperlipidemia. 7. Hypertension. 8. Seasonal allergies. REASON FOR HOSPITALIZATION: Ms. Aguirre is a 77 year-old female patient with a history of right knee pain. The pain had been persisting over several years. She had tried multiple efforts at conservative measures and treatment, but continued to worsen. Due to the decreased ability to function on activities of daily living, she requested operative intervention be performed by Dr. Kel Hartley for a right total knee arthroplasty. The patient was admitted to Acute Care and had an elective right total knee arthroplasty. After discharge she was admitted to Swing Bed. She was able to participate with her physical therapy but had an underlying pneumonia on acute care and as such, continued reconditioning and more aggressive pulmonary hygiene along with more aggressive physical therapy. Therefore, she was admitted to Swing Bed in stable condition. LABORATORY: No laboratory. RADIOLOGY: The only study completed as on 04/06/18 prior to discharge showed a focal opacity in the left lower lobe could be secondary to infectious process , appeared to be stable. HOSPITAL COURSE: Ms. Aguirre was admitted to Swing Bed on 04/02/18. She was continued on patient and rehabilitation efforts under the guidance of physical therapy department, Dr. Hartley. She was continued on treatment for the pneumonia with Levaquin and aggressive pulmonary hygiene. She continued to show good improvement clinically and was felt well enough to be discharged to continue with outpatient management on 04/06/18 to have physical therapy through the [facility]. PLAN: Ms. Aguirre was to be discharged home. She was instructed to followup with Dr. Hartley as scheduled. [facility] She was continued on an additional 7 days of antibiotic coverage with Levaquin. She was to resume home medications as instructed and to note a change in her medications which included a decrease in her Hydrochlorothiazide from 25 mg daily to 12.5 mg daily and could utilize her tablets she had, take half tablet daily until she is seen in followup with Dr. Yee. She was encouraged to take a probiotic while on antibiotics to prevent any antibiotic associated diarrhea. She was told to return to the hospital should she have any concerning symptoms. DISCHARGE DIET: Regular as tolerated. ACTIVITIES: As tolerated per physical therapy utilizing a walker. Wound management as per Dr. Hartley's postoperative orders. Shower but no tub baths. DISCHARGE MEDICATIONS: 1. Zofran 4 mg every 6 hours as needed for nausea, #15. 2. Zanaflex 4 mg every 8 hours if needed for muscle spasms, #21. 3. Hydrochlorothiazide 12.5 mg daily, #30. 4. [place] 7.5/325, one every 4 hours as needed with prescription written for pain by Dr. Hartley. 5. Levaquin 500 mg daily for additional 7 days. All other medications as noted above were continued. CONDITION ON DISCHARGE: Stable and improved. [facility][id number] [facility]
== END 2018-04-06 15:30 | disposition home or self-care (01) | DRG 559 ==
LOC: MS 09:45
PROVIDERS: ADMIT Nurse Practitioner Family; ATTEND Nurse Practitioner Family
PROC: F07L6ZZ Therapeutic Exercise Treatment of Musculoskeletal System - Lower Back / Lower Extremity (ICD-10-PCS; principal; 2018-04-02)
DX: Z47.1 Aftercare following joint replacement surgery (principal); J18.9 Pneumonia, unspecified organism; D68.9 Coagulation defect, unspecified; K21.9 Gastro-esophageal reflux disease without esophagitis; M10.9 Gout, unspecified; E78.5 Hyperlipidemia, unspecified; I10 Essential (primary) hypertension; J30.9 Allergic rhinitis, unspecified; M79.7 Fibromyalgia; Z96.651 Presence of right artificial knee joint; Z79.82 Long term (current) use of aspirin; Z79.891 Long term (current) use of opiate analgesic; Z88.1 Allergy status to other antibiotic agents; Z88.6 Allergy status to analgesic agent; Z88.8 Allergy status to other drugs, medicaments and biological substances; Z79.899 Other long term (current) drug therapy

== ENCOUNTER → 2018-07-22 | Outpatient (CLI) | payer MEDICARE | LOC: GMAL 14:41 | PROVIDERS: ATTEND Family Medicine | DX: D51.3 Other dietary vitamin B12 deficiency anemia (principal); M62.81 Muscle weakness (generalized); M10.00 Idiopathic gout, unspecified site ==

== ENCOUNTER → 2018-08-29 | Outpatient (CLI) | payer MEDICARE ==
--- NOTE | 2018-08-30 09:51 | MAM ---
EXAM DESCRIPTION: 3D Screening BILATERAL : Digital Mammography. CLINICAL HISTORY: 78 years Female SCREENING . No complaints or personal history of breast cancer. Sister with ovarian cancer. Remote family history of breast cancer. Childbirth. Postmenopausal 36 years. HRT 5 or more years ago.. Lifetime risk of developing breast cancer (Tyrer-Cuzick model)(%): 2.9. COMPARISON: Bilateral screening digital breast tomosynthesis 08/09/2017. TECHNIQUE: Bilateral CC and MLO projection full-field images, digital tomosynthesis mammographic technique. Bilateral digital 2-D full-field MLO images. CAD not available for tomosynthesis or 2-D images. FINDINGS: The breast parenchymal density pattern is: Extremely dense breast tissue, which lowers the sensitivity of mammography. No skin thickening or nipple retraction. Bilateral solitary microcalcifications. Bilateral vascular calcifications. No new focal, stellate mass or density, focal asymmetry , and no suspicious microcalcifications bilaterally. Stable mammograms compared to prior study. IMPRESSION: Benign exam. BIRAD CATEGORY: 2 BENIGN FINDINGS. RECOMMENDATIONS: FOLLOW UP: Routine digital bilateral mammographic screening, one year interval from August 2017. Written communication explaining the IMPRESSION and follow-up, will be mailed to the patient and referring health care provider. According to the [employer], yearly mammograms are recommended starting at age 40 and continuing as long as a woman is in good health. Any breast change noted on a breast self-exam should be reported promptly to the patient's healthcare provider. Breast MRI is recommended for women with an approximately 20-25% or greater lifetime risk of breast cancer, including women with a strong family history of breast or ovarian cancer and women who have been treated for Hodgkin's disease. A negative mammographic report should not delay tissue diagnosis in patients with significant clinical history or physical findings. Extremely dense breast tissue limits the sensitivity of digital mammography. Electronically signed by: Jonas Serra MD 08/30/2018 9:50 AM [employer]
== END ==
LOC: MAMMO 13:00
PROVIDERS: ATTEND Family Medicine
DX: Z12.31 Encounter for screening mammogram for malignant neoplasm of breast (principal)

== ENCOUNTER → 2019-06-19 | Outpatient (CLI) | payer MEDICARE ==
--- NOTE | 2019-06-20 08:53 | RAD ---
EXAM DESCRIPTION: Wrist,Left 3 Views: CR/DR/XR CLINICAL HISTORY: 79 years Female LEFT WRIST PAIN COMPARISON: None. TECHNIQUE: 3 VIEWS AP. Lateral. Oblique. Left wrist. FINDINGS: Decreased bone density. No acute bony abnormalities. Moderate narrowing of the thumb carpometacarpal joint with endplate sclerosis and subchondral cyst formation also radial subluxation of the metacarpal. Mild arthrosis of the STT joints. Mild arthrosis and narrowing of the radial scaphoid joint. Radiodense material abutting the TFCC on the dorsal aspect and the triquetrum lunate joint. IMPRESSION: Moderate arthrosis left carpometacarpal joint. Mild arthrosis in the STT joints. Mild to moderate arthrosis radial scaphoid joint. Bony loose body or calcification on the dorsal aspect of the TFCC and the lunate triquetrum joint. Overall bone density is decreased. Electronically signed by: Jonas Serra MD 06/20/2019 8:51 AM CDT
== END ==
LOC: RAD 08:19
PROVIDERS: ATTEND Orthopaedic Surgery
DX: M18.12 Unilateral primary osteoarthritis of first carpometacarpal joint, left hand (principal); M19.032 Primary osteoarthritis, left wrist; M25.832 Other specified joint disorders, left wrist; M85.832 Other specified disorders of bone density and structure, left forearm

== ENCOUNTER → 2020-08-02 | Outpatient (CLI) | payer MEDICARE | LOC: GMAL 14:24 | PROVIDERS: ATTEND Family Medicine | DX: D51.3 Other dietary vitamin B12 deficiency anemia (principal); E55.9 Vitamin D deficiency, unspecified; R53.83 Other fatigue; I10 Essential (primary) hypertension; E78.49 Other hyperlipidemia; M15.0 Primary generalized (osteo)arthritis ==